=== PATIENT | male | born 1955 | race Caucasian/White ===

== ENCOUNTER 2021-09-01 13:21 | Emergency (ER) | payer MEDICARE, BC ==
[~2021-09-01] VITALS: Ht 167.6 cm; Wt 93.2 kg
[~2021-09-01 13:21] MED LIST: ASPI-611 PO; AZIL1TAB2 PO; DOCU100C40 PO; HYDR-3972 PO; LOP25T PO; MULT-1085 PO; ROSU20TA2 PO
--- NOTE | 2021-09-01 13:31 | NUR ---
TO CT WITH STROKE RN VIA ANDREWS
[2021-09-01 13:43] LABS: BASOPHILS % (AUTO) 0.8 % (0-1); EOSINOPHILS # (AUTO) 0.1 X10'3 (0-0.9); EOSINOPHILS % (AUTO) 2.9 % (0-6); HEMATOCRIT 43.8 % (42.0-52.0); HEMOGLOBIN 14.7 g/dl (14.0-17.9); LYMPHOCYTES # (AUTO) 1.6 X10'3 (1.1-4.8); LYMPHOCYTES % (AUTO) 30.8 % (21-51); MEAN CORPUSCULAR HEMOGLOBIN 30.3 PG (27.0-31.0); MEAN CORPUSCULAR HGB CONC 33.6 g/dL (33.0-36.5); MEAN CORPUSCULAR VOLUME 90.1 FL (78-98); MEAN PLATELET VOLUME 8.2 FL (7.4-10.4); MONOCYTES # (AUTO) 0.6 X10'3 (0-0.9); MONOCYTES % (AUTO) 12.1 % (2-12); NEUTROPHILS # (AUTO) 2.7 X10'3 (1.8-7.7); NEUTROPHILS % (AUTO) 53.4 % (42-75); PLATELET COUNT 188 X10'3 (140-440); RED BLOOD COUNT 4.86 X10'6 (4.70-6.10); WHITE BLOOD COUNT 5.1 X10'3 (4.5-11.0)
[2021-09-01 14:02] LABS: PARTIAL THROMBOPLASTIN TIME 28 SECONDS (22-32)
[2021-09-01 14:07] LABS: ALANINE AMINOTRANSFERASE 30 U/L (12-78); ALKALINE PHOSPHATASE 121 IU/L (46-116); ANION GAP 10 (8-16); ASPARTATE AMINO TRANSFERASE 21 U/L (10-37); BILIRUBIN,TOTAL 0.9 MG/DL (0.1-1.0); BLOOD UREA NITROGEN 16 MG/DL (7-18); BUN/CREATININE RATIO 19.8 (5.4-32.0); CALCIUM 9.3 MG/DL (8.5-10.1); CHLORIDE 105 MMOL/L (99-107); CREATININE 0.81 MG/DL (0.60-1.10); GLUCOSE 98 MG/DL (70-104); SODIUM 144 MMOL/L (135-145); TOTAL CARBON DIOXIDE 28.8 MMOL/L (24-32); TOTAL PROTEIN 8.1 G/DL (6.4-8.2); eGFR > 90 ML/MIN
[2021-09-01] MEDS ORDERED: HYDR25TA4 PO (15:56)
[2021-09-01] MEDS ORDERED: METO25TA6 PO (15:56)
[2021-09-01] MEDS ORDERED: LOSA100T57 PO (15:56)
[2021-09-01 15:59] LABS: CLARITY,URINE CLEAR (Clear); COLOR,URINE YELLOW (Yellow); GLUCOSE, URINE NEGATIVE (Neg); KETONES,URINE NEGATIVE (Neg); OCCULT BLOOD,URINE NEGATIVE (Neg); PROTEIN,URINE NEGATIVE (Neg); UA COLLECTION TYPE URINAL
[2021-09-01 16:00] LABS: LEUKOCYTE ESTERASE ,URINE NEGATIVE (Neg); NITRITES, URINE NEGATIVE (Neg); UROBILINOGEN,URINE 0.2 E.U/dL (0.2-1.0)
[2021-09-01] MEDS ORDERED: ASPI81TA52 PO (17:07)
[2021-09-01] MEDS ORDERED: iohexol 350MG/ML 100ml bottle IV ONE (17:37)
[2021-09-01] MEDS ORDERED: magnesium 2GM in 50ml NS 50 ML IV PRN (18:20)
[2021-09-01] MEDS ORDERED: morphine 2 MG/ML inj. syringe IV PRN ×2 (18:20)
[2021-09-01] MEDS ORDERED: magnesium hydroxide 30ml (MOM) UD suspension PO PRN (18:20)
[2021-09-01] MEDS ORDERED: mag hydrox/Alum hydrox/simeth 30ml oral suspension PO PRN (18:20)
[2021-09-01] MEDS ORDERED: potassium Cl 40MEQ/1/2NS 520ml 520 ML IV PRN ×2 (18:20)
[2021-09-01] MEDS ORDERED: magnesium Cl slow-release 64mg tablet PO PRN (18:20)
[2021-09-01] MEDS ORDERED: HYDROcodone/acetaminophen 10/325mg tab PO PRN (18:20)
[2021-09-01] MEDS ORDERED: PERFLUTREN PROTEIN-A MICROSPHR (Optison) 0.22 MG/ML 3ML VIAL IV ONE (18:20)
[2021-09-01] MEDS ORDERED: diphenhydrAMINE 25mg capsule PO PRN (18:20)
[2021-09-01] MEDS ORDERED: acetaminophen 650mg rectal suppository RC PRN (18:20)
[2021-09-01] MEDS ORDERED: magnesium 4gm in 100ml NS 100 ML IV PRN (18:20)
[2021-09-01] MEDS ORDERED: HYDROcodone/acetaminophen 5mg/325mg tablet PO PRN (18:20)
[2021-09-01] MEDS ORDERED: ondansetron/PF 4mg/2ml inj IV PRN (18:20)
[2021-09-01] MEDS ORDERED: potassium Cl 20 mEq SR tablet PO PRN ×2 (18:20)
[2021-09-01] MEDS ORDERED: bisacodyl 10mg suppository rectal RC PRN (18:20)
[2021-09-01] MEDS ORDERED: acetaminophen 325mg tablet PO PRN ×2 (18:20)
[2021-09-01] MEDS ORDERED: aspirin 325mg tablet PO ONE (18:30)
[2021-09-01 19:33] LABS: HEMOGLOBIN A1C 6.3 % (4.5-6.2)
[2021-09-01] MEDS: metoprolol tartrate 25mg tablet PO SCH (19:37)
[2021-09-01] MEDS: heparin, porcine 5000 units/ml vial SQ SCH (19:37)
[2021-09-01] MEDS: normal saline 1000ml 1,000 ML IV SCH (19:38)
[2021-09-01 19:41] LABS: CHOL/HDL RATIO 2.2 (0.00-4.99); CHOLESTEROL 94 MG/DL (0-200); HDL CHOLESTEROL 43 MG/DL (35-60); LDL CHOLESTEROL 41 MG/DL (50-100); TRIGLYCERIDES 68 MG/DL (20-135)
[2021-09-01 19:42] LABS: ETHANOL < 0.010 GM/DL (0.0-0.010)
[2021-09-01] MEDS: docusate sod 100mg capsule PO SCH (20:00)
[2021-09-01] MEDS: K and/or MAG REPLACEMENT MC SCH ×2 (20:00→20:02)
[2021-09-01] MEDS ORDERED: atorvastatin 20mg tablet PO SCH (21:00)
[2021-09-01 21:32] LABS: URINE AMPHETAMINE SCREEN NEGATIVE (Neg); URINE BARBITUATE SCREEN NEGATIVE (Neg); URINE BENZODIAZEPINES SCREEN NEGATIVE (Neg); URINE CANNABINOID SCREEN NEGATIVE (Neg); URINE COCAINE SCREEN NEGATIVE (Neg); URINE METHADONE SCREEN NEGATIVE (Neg); URINE OPIATE SCREEN NEGATIVE (Neg); URINE PHENCYCLIDINE SCREEN NEGATIVE (Neg)
[2021-09-02 04:28] LABS: ALANINE AMINOTRANSFERASE 26 U/L (12-78); ALBUMIN/GLOBULIN RATIO 0.8 (1.1-1.5); ALKALINE PHOSPHATASE 97 IU/L (46-116); ANION GAP 9 (8-16); ASPARTATE AMINO TRANSFERASE 16 U/L (10-37); BILIRUBIN,TOTAL 0.6 MG/DL (0.1-1.0); BLOOD UREA NITROGEN 16 MG/DL (7-18); BUN/CREATININE RATIO 22.9 (5.4-32.0); CHLORIDE 108 MMOL/L (99-107); GLUCOSE 88 MG/DL (70-104); POTASSIUM 3.2 MMOL/L (3.5-5.1); SODIUM 144 MMOL/L (135-145); TOTAL CARBON DIOXIDE 27.2 MMOL/L (24-32); TOTAL PROTEIN 6.6 G/DL (6.4-8.2); eGFR > 90 ML/MIN
[2021-09-02 04:32] LABS: BASOPHILS % (AUTO) 0.8 % (0-1); EOSINOPHILS # (AUTO) 0.2 X10'3 (0-0.9); EOSINOPHILS % (AUTO) 3.5 % (0-6); HEMATOCRIT 39.6 % (42.0-52.0); HEMOGLOBIN 13.5 g/dl (14.0-17.9); LYMPHOCYTES # (AUTO) 1.4 X10'3 (1.1-4.8); LYMPHOCYTES % (AUTO) 31.7 % (21-51); MEAN CORPUSCULAR HEMOGLOBIN 30.7 PG (27.0-31.0); MEAN CORPUSCULAR VOLUME 90.3 FL (78-98); MEAN PLATELET VOLUME 8.6 FL (7.4-10.4); MONOCYTES # (AUTO) 0.6 X10'3 (0-0.9); MONOCYTES % (AUTO) 13.4 % (2-12); NEUTROPHILS # (AUTO) 2.3 X10'3 (1.8-7.7); NEUTROPHILS % (AUTO) 50.6 % (42-75); PLATELET COUNT 171 X10'3 (140-440); RED BLOOD COUNT 4.39 X10'6 (4.70-6.10); RED CELL DISTRIBUTION WIDTH 13.4 % (11.5-14.5); WHITE BLOOD COUNT 4.5 X10'3 (4.5-11.0)
[2021-09-02 04:33] LABS: CHOL/HDL RATIO 2.3 (0.00-4.99); CHOLESTEROL 83 MG/DL (0-200); HDL CHOLESTEROL 36 MG/DL (35-60); LDL CHOLESTEROL 37 MG/DL (50-100); MAGNESIUM 1.9 MG/DL (1.5-2.4); PHOSPHORUS 3.4 MG/DL (2.3-4.5); TRIGLYCERIDES 63 MG/DL (20-135)
[2021-09-02] MEDS ORDERED: HYDROchlorothiazide 25mg tablet PO SCH (08:00)
[2021-09-02] MEDS ORDERED: multivitamins, therapeutics tablet PO SCH (08:00)
[2021-09-02] MEDS: K and/or MAG REPLACEMENT MC SCH (08:00)
[2021-09-02] MEDS ORDERED: aspirin 81mg, enteric-coated 1 TAB TABLET.DR PO SCH (08:00)
[2021-09-02] MEDS ORDERED: losartan 50mg tablet PO SCH (08:00)
[2021-09-02] MEDS: docusate sod 100mg capsule PO SCH (08:15)
[2021-09-02] MEDS: heparin, porcine 5000 units/ml vial SQ SCH (08:15)
[2021-09-02] MEDS: metoprolol tartrate 25mg tablet PO SCH (08:15)
[2021-09-02] MEDS: normal saline 1000ml 1,000 ML IV SCH (08:16)
[2021-09-02 12:01] VITALS: BP 143/87
== END 2021-09-02 15:51 | disposition admitted as inpatient to this hospital (09) ==
LOC: ER 13:22 → ED HOLD 18:25 → UNDOADMIN 18:25 → UNDODISIN 09-02 16:31
DX: I63.9 Cerebral infarction, unspecified (principal); Z20.822 Contact with and (suspected) exposure to COVID-19
CPT/HCPCS: 36415; 70450; 70496; 70498; 70551; 71045; 73080; 80053; 80061; 80305; 80320; 81003; 82948; 83036; 83735; 84100; 84443; 84484; 85025; 85610; 85651; 85730; 86885; 86900; 86901; 87635; 93005; 93306; 93971; 96360; 96361; 97162; 97530; 99285; J1644; J7030; Q9967; G0378